=== PATIENT | female | born 1985 | race African-American/Black ===

== ENCOUNTER 2016-07-26 08:32 | Emergency (ER) | payer MEDICAID ==
[~2016-07-26] VITALS: Ht 162.6 cm; Wt 55.0 kg
[2016-07-26 09:12] VITALS: BP 128/75
[2016-07-26] MEDS ORDERED: ACETAMINOPHEN 500MG TABLET PO ONE (10:15)
== END 2016-07-26 10:22 | disposition home or self-care (01) ==
LOC: ER 09:39
DX: Z76.0 Encounter for issue of repeat prescription (principal); F41.9 Anxiety disorder, unspecified; F31.9 Bipolar disorder, unspecified; Z82.49 Family history of ischemic heart disease and other diseases of the circulatory system
CPT/HCPCS: 99283

== ENCOUNTER 2018-04-09 13:04 | Emergency (ER) | payer MEDICAID ==
[~2018-04-09] VITALS: Ht 162.6 cm; Wt 74.2 kg
[2018-04-09] MEDS ORDERED: KETOROLAC 60MG/2ML VIAL IM ONE (14:30)
[2018-04-09] MEDS ORDERED: DEXAMETHASONE 10 MG/ML VIAL IM ONE (14:30)
[2018-04-09 15:10] VITALS: BP 122/87
== END 2018-04-09 15:16 | disposition home or self-care (01) ==
LOC: ER 13:04
DX: J03.90 Acute tonsillitis, unspecified (principal); R05 Cough; R09.81 Nasal congestion; F32.9 Major depressive disorder, single episode, unspecified; F41.9 Anxiety disorder, unspecified; F17.200 Nicotine dependence, unspecified, uncomplicated
CPT/HCPCS: 81025; 96372; 99283; J1100; J1885

== ENCOUNTER 2018-04-29 13:38 | Emergency (ER) | payer MEDICAID ==
[~2018-04-29] VITALS: Ht 162.6 cm; Wt 73.0 kg
[2018-04-29 13:57] VITALS: BP 130/87
[2018-04-29 17:36] LABS: CLARITY URINE CLEAR (CLEAR); COLOR URINE DARK YELLOW (YELLOW); KETONES URINE TRACE (NEGATIVE); LEUKOCYTE ESTERASE URINE NEGATIVE (NEGATIVE); NITRITE URINE NEGATIVE (NEGATIVE); OCCULT BLOOD URINE NEGATIVE (NEGATIVE); PH URINE 5.5 (4.5-8.0); PROTEIN URINE TRACE (NEGATIVE); SPECIFIC GRAVITY URINE 1.033 (1.005-1.030)
== END 2018-04-29 18:45 | disposition home or self-care (01) ==
LOC: ER 16:25
DX: N76.0 Acute vaginitis (principal); B00.9 Herpesviral infection, unspecified; F31.9 Bipolar disorder, unspecified; F12.10 Cannabis abuse, uncomplicated; F17.200 Nicotine dependence, unspecified, uncomplicated
CPT/HCPCS: 81025; 87210; 99283

== ENCOUNTER 2024-11-20 08:07 | Emergency (ER) | payer MEDICAID ==
[~2024-11-20] VITALS: Ht 165.1 cm; Wt 61.0 kg
[2024-11-20 08:09] VITALS: BP 110/76; PULSE 84; RESP 18; TEMP 37; O2SAT 100
[2024-11-20] MEDS: KETOROLAC 30MG/ML VIAL IM ONE (08:27)
[2024-11-20] MEDS ORDERED: NAPR-1176 MT (10:38)
== END 2024-11-20 11:24 | disposition home or self-care (01) ==
LOC: ER 08:07
DX: S20.219A Contusion of unspecified front wall of thorax, initial encounter (principal); F31.9 Bipolar disorder, unspecified; F10.90 Alcohol use, unspecified, uncomplicated; F12.90 Cannabis use, unspecified, uncomplicated; Z79.1 Long term (current) use of non-steroidal anti-inflammatories (NSAID); Y04.0XXA Assault by unarmed brawl or fight, initial encounter; Y93.89 Activity, other specified; Y92.89 Other specified places as the place of occurrence of the external cause; Y99.8 Other external cause status; Y90.9 Presence of alcohol in blood, level not specified
CPT/HCPCS: 99283; 71045; 81025; 93005; 96372; J1885